=== PATIENT | female | born 1990 | race Caucasian/White ===

== ENCOUNTER → 2016-10-21 | Outpatient (CLI) | payer OTHER ==
[~2016-10-21] MED LIST: IOHEXOL 180 MG/ML 10 ML VIAL. INT UTERIN ONE
--- NOTE | 2016-10-21 15:32 | KCIC ---
INDICATION: Patient recently stopped control pills with attempts to become . Multiple prior abdominal surgeries for ulcerative colitis including ileostomy. Known scar tissue and adhesions. TECHNIQUE: The procedure was discussed with the patient. Written consent proceed was obtained. Timeout procedure was performed. Speculum was inserted and the cervix identified. Cervix was cleaned with Betadine. Hysterosalpingogram catheter with external stiffener was positioned across the cervix and the balloon inflated. Speculum was removed. 15 mL of Omnipaque 180 was injected over the course of the imaging. Imaging was obtained including oblique imaging. Catheter was then removed. Patient tolerated the procedure well. Fluoroscopy time is 48 seconds. Image count is 11. FINDINGS: Endometrial canal is without filling defect. Both fallopian tubes fill, the right slightly earlier than the left. Both fimbrial end of each fallopian tube is in the midline, the 2 tubes are superimposed on each other. Medial position of the ovaries could be related to prior surgeries. There is free spillage of contrast noted. However, given both tubes are superimposed on each other, it was not possible to determine whether both or solely one tube was the source of this free spillage. Both tubes are normal in appearance with visualization of the the fimbrial ends, favoring that both tubes are patent. IMPRESSION: Fimbrial end of each fallopian tube is in the midline, superimposed. There is free spillage from at least one tube. However, given superimposition of the 2 tubes, it was difficult to prove that both tubes were patent. Electronically signed by: Brent Todd MD (10/21/2016 3:29 PM) [id number]
== END | disposition home or self-care (01) ==
LOC: KCIC 14:04
PROVIDERS: ATTEND Obstetrics & Gynecology
DX: Z31.41 Encounter for fertility testing (principal); K51.90 Ulcerative colitis, unspecified, without complications
CPT/HCPCS: 74400